=== PATIENT | male | born 1955 | race Caucasian/White ===

== ENCOUNTER 2017-07-26 08:34 | Outpatient (CLI) | payer OTHER ==
[2014-08-02 12:10] VITALS: BP 105/71
[2017-07-26 08:52] LABS: APPEARANCE,URINE Clear (CLEAR); COLOR,URINE Yellow (YELLOW); OCCULT BLOOD,URINE Negative (NEGATIVE); UROBILINOGEN URINE 0.2 Eu (0.2-1.0)
[2017-07-26 08:54] LABS: BASOPHILS % 0.5 (0.0-1.5); EOSINOPHILS % 4.9 % (0.0-6.8); MEAN CORPUSCULAR HEMOGLOBIN 31.2 pg (28.0-34.0); MEAN CORPUSCULAR VOLUME 91.6 fl (80.0-100.0); MONOCYTES % 5.5 % (0.0-11.0); NEUTROPHILS # 3.8 # k/uL (1.4-7.7)
[2017-07-26 09:20] LABS: eGFR (African) > 60; eGFR (Non-African) > 60
--- NOTE | 2017-07-26 09:20 | Diagnostic Imaging Report ---
SUNDAY ARMSTRONG [facility] [id number] [facility].[address] [id number] Report Submission Date: Jul 26, 2017 9:18:28 AM FINAL INSPECTOR Patient Study Name: CASA NAYAK Date: Jul 26, 2017 8:58:35 AM FINAL INSPECTOR Modality Type: US Gender: M Description: US THYROID SOFT TISS HEAD/NCK : 55 Institution: [facility] Physician: SUNDAY ARMSTRONG Examination: Ultrasound soft tissue. History: PALPABLE LUMP POSTERIOR RIGHT NECK (Hx) Comparison exams: None available. Findings: Sonographic evaluation of the right neck in the region of the palpable density. Solid structure measuring 2.2 x 0.6 x 2.2 cm identified. No flow centrally on color analysis. No evidence for echogenic fatty hilum to suggest lymph node. No cystic components. Impression: Solid nodule corresponding to the palpable density. Follow as warranted. Electronically signed on Jul 26, 2017 9:18:28 AM FINAL INSPECTOR by: Ephraim ZAMORANO
== END 2017-07-26 08:35 ==
LOC: RAD 08:34
PROVIDERS: ATTEND Internal Medicine
DX: Z00.00 Encounter for general adult medical examination without abnormal findings (principal); D17.9 Benign lipomatous neoplasm, unspecified; R53.83 Other fatigue
CPT/HCPCS: 36415; 76536; 80053; 81002; 84153; 84443; 85025; G0103

== ENCOUNTER 2019-03-19 08:08 | Outpatient (CLI) | payer OTHER ==
[2014-08-02 12:10] VITALS: BP 105/71
[2019-03-26 10:14] LABS: BASOPHILS % 0.7 % (0.0-1.5)
[2019-03-26 10:15] LABS: HDL 47 mg/dL (>40); eGFR (Non-African) 54
== END 2019-03-19 08:13 | disposition home or self-care (01) ==
LOC: LAB 08:08
PROVIDERS: ATTEND Internal Medicine
DX: Z00.00 Encounter for general adult medical examination without abnormal findings (principal)
CPT/HCPCS: 36415; 80053; 80061; 84153; 84443; 85025